=== PATIENT | male | born 1935 | race African-American/Black ===

== ENCOUNTER 2021-04-01 11:12 | Emergency (ER) | payer OTHER ==
[~2021-04-01] VITALS: Ht 185.4 cm; Wt 83.0 kg
[~2021-04-01 11:12] MED LIST: AMLO2.5T45 MT; ATEN-42 MT; ATOR10TA69 MT; ERGO400C MT; FINA1TAB18 MT; NEOAPJ IM; PANT20TA17 MT; TAMS0.4C31 MT; [UNRECOGNIZED DRUG - CODE] MC
[2021-04-01 11:54] LABS: BASOPHILS % 0.5 % (0.0-2.0); EOSINOPHILS % 0.3 % (0.0-5.0); HEMATOCRIT. 35.5 % (42.0-52.0); HEMOGLOBIN. 11.9 g/dL (14.0-18.0); LYMPHOCYTES % 22.3 % (20.0-50.0); MEAN CORPUSCULAR HEMOGLOBIN 30.1 pg (28.0-32.0); MEAN CORPUSCULAR VOLUME 89.9 fL (80.0-94.0); MEAN PLATELET VOLUME 7.5 fl (7.4-10.4); MONOCYTES % 13.5 % (2.0-8.0); NEUTROPHILS % 63.4 % (40.0-76.0); PLATELET 173 x1000/uL (130-400); RED BLOOD CELL COUNT 3.95 mill/uL (4.7-6.1); RED CELL DISTRIBUTION WIDTH 17.7 % (11.6-14.6)
[2021-04-01 12:07] LABS: CHLORIDE 111 mEq/L (98-107)
[2021-04-01 13:58] VITALS: BP 150/102
[2021-04-01 13:59] LABS: CLARITY URINE CLOUDY (CLEAR); COLOR URINE YELLOW (YELLOW); KETONES URINE TRACE (NEGATIVE); LEUKOCYTE ESTERASE URINE TRACE (NEGATIVE); NITRITE URINE NEGATIVE (NEGATIVE); OCCULT BLOOD URINE NEGATIVE (NEGATIVE); PH URINE 5.5 (4.5-8.0); PROTEIN URINE 2+ (NEGATIVE); SPECIFIC GRAVITY URINE 1.021 (1.005-1.030)
== END 2021-04-01 16:12 | disposition left against medical advice (07) ==
LOC: ER 11:12 → EDBEDREQTM 13:50 → EDBEDREQ 13:50 → ER 16:12 → CANBEDREQ 17:05
DX: R55 Syncope and collapse (principal); F03.90 Unspecified dementia, unspecified severity, without behavioral disturbance, psychotic disturbance, mood disturbance, and anxiety; I10 Essential (primary) hypertension; Z86.73 Personal history of transient ischemic attack (TIA), and cerebral infarction without residual deficits
CPT/HCPCS: 36415; 71045; 80053; 81003; 83880; 84484; 85025; 93005; 99285